=== PATIENT | male | born 1950 | race Hispanic/Latino ===

== ENCOUNTER → 2021-06-11 | Outpatient (CLI) | payer OTHER ==
[~2021-06-11] MED LIST: ARAVA10 MG; CENTRUM SILVER1 EAC3 PO; CLARITIN10 M2 PO; CYANOCOBAL1000 MCG/M IM; FOLIC ACID1 MG PO; IOPAMIDOL 370 MG/ML 200 ML INFUS..BTL INJ ONE; KINERET100 MG/0.6; METHOTREXATE2.5 MG PO; METHYLPREDNISOLO4 MG PO; MILK THISTLE175 MG PO; PRILOSEC OTC20 MG PO; SODIUM CHLORIDE 0.9% 50ML 50 ML ONE; TRIAMCINOLONE A15 G3; TYLENOL # 31 EA PO; VITAMIN D-32000 UNIT PO; ZOFRAN8 MG PO
[2021-06-12 10:42] LABS: CREATININE, SERUM 0.74 mg/dL (0.72-1.25); EST GLOMERULAR FILTRATION RATE > 60 ML/MIN (60-)
== END ==
LOC: CT 12:18
PROVIDERS: ATTEND Otolaryngology
DX: R07.0 Pain in throat (principal)
CPT/HCPCS: 36415; 70491; 82565; Q9967